=== PATIENT | female | born 1945 | race Caucasian/White ===

== ENCOUNTER 2022-02-22 22:07 | Inpatient (IN) | payer OTHER, MEDICAID ==
[~2022-02-22] VITALS: Ht 154.9 cm; Wt 59.9 kg
[2022-02-22 22:15] VITALS: BP_SYST 152
--- NOTE | 2022-02-22 22:16 | NUR ---
Placed in room 4 . Placed on monitoring and evaluation advisor, blood pressure machine and pulse oximeter. To gown for exam. Side rails up. Report given to DUTCH STONE(REG).
--- NOTE | 2022-02-22 22:41 | NUR ---
ER at bedside examining patient.
[2022-02-22 22:48] LABS: BASOPHILS # (AUTO) 0.1 K/uL (0.0-0.2); BASOPHILS % (AUTO) 0.9 % (0.0-2.0); EOSINOPHILS # (AUTO) 0.2 K/uL (0.0-0.4); EOSINOPHILS % (AUTO) 1.9 % (0.0-4.0); HEMATOCRIT 41.4 % (36-48); HEMOGLOBIN 13.4 g/dL (12.0-16.0); LYMPHOCYTES # (AUTO) 3.2 K/uL (1.0-5.5); LYMPHOCYTES % (AUTO) 33.7 % (20.5-51.5); MEAN CORPUSCULAR HEMOGLOBIN 28 pg (27-31); MEAN CORPUSCULAR HGB CONC 32 % (32-36); MEAN CORPUSCULAR VOLUME 85 fL (79.0-98.0); MONOCYTES # (AUTO) 0.6 K/uL (0.0-1.0); MONOCYTES % (AUTO) 6.4 % (1.7-9.3); NEUTROPHILS # (AUTO) 5.5 K/uL (1.8-7.7); NEUTROPHILS % (AUTO) 57.1 % (40.0-70.0); PLATELET COUNT (AUTO) 347 K/uL (130-430); RED BLOOD CELL COUNT(AUTO) 4.84 MIL/uL (4.2-6.2); RED CELL DISTRIBUTION WIDTH 14.3 % (9.0-15.0); WHITE BLOOD COUNT (AUTO) 9.6 K/uL (4.8-10.8)
--- NOTE | 2022-02-22 22:50 | NUR ---
PATIENT BIB [facility], INFORMED OF PLAN OF CARE AT THIS TIME HAS BEEN SEEN BY ER MD, ATTEMPTED TO ESTABLISHE A SALINE LOCK, UNABLE TO DO SO AT THIS TIME. NO S/S OF ANY DISTRESS NOTED AT THIS TIME. #20G ESTABLISHED IN RIGHT HAND BY MADHU STONE. BEDSIDE EKG WAS DONE FOR MD REVIEW.
[2022-02-22 22:56] LABS: ANION GAP 8 (5-15); CALCIUM 9.5 mg/dL (8.4-11.0); CHLORIDE 106 mmol/L (98-107); CREATININE 0.93 mg/dL (0.55-1.30); GLUCOSE 114 mg/dL (70-99); UREA NITROGEN, BLOOD 15 mg/dL (8-21)
[2022-02-22 23:04] LABS: ALANINE AMINOTRANSFERASE 23 U/L (12-78); ALBUMIN 3.6 g/dL (3.4-4.8); ASPARTATE AMINOTRANSFERASE 17 U/L (10-37); TOTAL BILIRUBIN 0.3 mg/dL (0.0-1.0)
[2022-02-23] MEDS ORDERED: ASPIRIN 81 MG TABLET(ECOTRIN) PO ONE
--- NOTE | 2022-02-23 00:02 | NUR ---
PATIENT CONTINUES TO REST WITHOUT S/S OF ANY DISTRESS AT THIS TIME. REPOSITIONED SELF FOR COMFORT.WILL CONTINUE TO MONITOR. PATIENT AWARE WILL BE ADMITTED
[2022-02-23] MEDS ORDERED: POTASSIUM CHLORIDE 20 MEQ TAB.PRT.SR PO ONE (00:15)
[2022-02-23] MEDS ORDERED: AMLO5TAB4 PO (01:02)
--- NOTE | 2022-02-23 01:02 | NUR ---
Medication reconciliation completed with information provided by pt at the bedside. Any prior medication reconciliation on file was reviewed and corrected.
--- NOTE | 2022-02-23 01:04 | NUR ---
COVID 19 SWAB TEST SAMPLE COLLECTED AND SENT TO THE LAB
--- NOTE | 2022-02-23 01:10 | NUR ---
PATIENT RESTING REMAINS EASY TO AROUSE, NO VOICED C/O PAIN OR DISCOMFORT AT THIS TIME.
--- NOTE | 2022-02-23 01:26 | NUR ---
O2 SAT 88% MD AWARE, O2 STARTED @2L.
--- NOTE | 2022-02-23 02:46 | NUR ---
Admit bed requested Patient will be admitted to care of Dr.PALIWAL Staton Admitted to TELE unit. Diagnosis CP Inpatient (Yes or No) YES Observation (Yes or No) NO Orientation concerns or request close to nursing station (Yes or No) NO Covid Status NEGATIVE On vent or bipap NO Isolation requirements NO Needs a sitter NO From Home (Yes or if No enter name of facility) YES Requires Dialysis (Yes or No) NO Med Rec Completed (Yes of No) YES
--- NOTE | 2022-02-23 03:21 | NUR ---
RESTING IN BED, DAUGHTER AT BEDSIDE NO S/S OF ANY DISTRESS NOTED, UPDATED ON AWAITING ROOM ASSIGNMENT. NO CHANGE NOTED IN PRIMARY ASSESSMENT WILL CONTINUE TO MONITOR.
[2022-02-23] MEDS ORDERED: NACL 0.9% 1,000 ML IV ONE (05:30)
--- NOTE | 2022-02-23 05:34 | NUR ---
MD MADE AWARE OF HEART RATE FROM MID 40'S TO UPPER 50'S DURING SLEEP, OKAY TO GIVE NS BOLUS.
--- NOTE | 2022-02-23 06:12 | NUR ---
PATIENT UP AMBULATED TO BATHROOM, PLACED [facility] BED, NO VOICED C/O PAIN OR DISCOMFORT. WILL CONTINUE TO MONITOR.
--- NOTE | 2022-02-23 07:22 | NUR ---
Received report from anant RN. Pt lying in bed with eyes closed. REsp even and unlabored. No acute distress noted. Denies any pain. Presently on monitor.
--- NOTE | 2022-02-23 07:32 | NUR ---
ADMISSION CONSULT HAS BEEN PAGED ORDERED BY Brionna HARRIS
--- NOTE | 2022-02-23 07:35 | NUR ---
Cardiology consulted doctor stated (Dr. Rm) he will come in later to view patient.
--- NOTE | 2022-02-23 09:00 | NUR ---
Breakfast 90% consumed.
--- NOTE | 2022-02-23 09:35 | NUR ---
Cardiac consult provider present in room.
[2022-02-23] MEDS ORDERED: ALBUTEROL SULFATE 0.083% 2.5 MG/3 ML VIAL.NEB INH PRN (10:00)
[2022-02-23] MEDS ORDERED: IPRATROPIUM BROM 0.5 MG/2.5 ML VIAL.NEB (ATROVENT) INH PRN (10:00)
[2022-02-23] MEDS ORDERED: ACETAMINOPHEN 325 MG TABLET PO PRN ×2 (10:00→10:30)
[2022-02-23] MEDS ORDERED: NALOXONE HCL 0.4 MG/ML AMP (NARCAN) IVP PRN ×2 (10:00)
[2022-02-23] MEDS ORDERED: ONDANSETRON HCL 4 MG/2 ML VIAL IVP PRN (10:00)
[2022-02-23] MEDS ORDERED: amLODIPine BESYLATE 5 MG TABLET PO ONE (10:00)
[2022-02-23] MEDS ORDERED: HYDROcodone/ACETAMIN 10-325 MG TAB PO PRN (10:00)
[2022-02-23] MEDS ORDERED: HYDROcodone/ACETAMIN 5-325 MG TAB (NORCO/ VICODIN) PO PRN (10:00)
--- NOTE | 2022-02-23 10:15 | NUR ---
Patient will be admitted to care of Dr. Rm . Admitted to telemetry unit. Will go to room 103 bed A. Belongings list completed. Complete and up to date summary report printed. SBAR report given to CHASE Mena at bedside with opportunity for questions.
--- NOTE | 2022-02-23 10:20 | NUR ---
Admission Note Received patient from ER with diagnosis of Chest Pain/Afib. Initial Plan of Care discussed-patient verbalized understanding. Placed on long line teamster. Oriented to room, call light, pain management and safety.Personal belongings checked and recorded.
--- NOTE | 2022-02-23 10:21 | NUR ---
Cardiology Consult Dr Waldo Rm said that NORA Palma will see pt, RE; CHEST PAIN.
[2022-02-23 10:30] VITALS: BP_SYST 139
[2022-02-23 11:00] VITALS: BP_SYST 139
[2022-02-23 11:01] LABS: THYROID STIMULATING HORMONE 1.12 uIu/mL (0.36-3.74)
--- NOTE | 2022-02-23 12:10 | NUR ---
LUNCH: LUNCH TRAY SERVED. DAUGHTER AT THE BEDSIDE.
[2022-02-23] MEDS: NORMAL SALINE 5 ML DISP.SYRIN IVF SCH ×4 (14:00→22:00)
[2022-02-23] MEDS ORDERED: iohexoL 350 mgI/mL, 100 ML INFUS..BTL IV ONE (14:05)
--- NOTE | 2022-02-23 14:45 | NUR ---
TO CT SCAN: TO CT SCAN VIA WHEELCHAIR.STABLE.
--- NOTE | 2022-02-23 15:00 | NUR ---
RN ROUNDS: PATIENT BACK FROM RADIOLOGY. NO COMPLAINED MADE.
[2022-02-23 17:13] VITALS: BP_SYST 139
--- NOTE | 2022-02-23 18:50 | NUR ---
EVENING ROUNDS: PATIENT'S DAUGHTER AT THE BEDSIDE. PATIENT HAD DINNER. DENIES ANY CHEST PAIN. FOR STRESS STUDY IN AM ORDERED. NPO POST MIDNIGHT.WILL ENDORSED TO INCOMING NIGHT NURSE.STABLE.
--- NOTE | 2022-02-23 19:30 | NUR ---
ROUNDS PATIENT RESTING COMFORTABLY IN BED, VITALS STABLE, DENIES ANY CHEST PAIN AT THIS TIME. ASSESSMENT DONE AND DOCUEMNTED. NEEDS ATTENDED TO. SAFETY MEASURES IN PLACED. CALL LIGHT PLACED WITHIN REACH.
[2022-02-23 20:00] VITALS: BP_SYST 119
--- NOTE | 2022-02-24 00:10 | NUR ---
PATIENT RESTING: Patient resting quietly. No acute distress noted. Vital signs within normal range.
[2022-02-24 00:57] VITALS: BP_SYST 132
[2022-02-24] MEDS: NORMAL SALINE 5 ML DISP.SYRIN IVF SCH ×4 (05:49→14:32)
--- NOTE | 2022-02-24 06:43 | NUR ---
CLOSING NOTES PATIENT AWAKE, NO COMPLAINTS AT THIS TIME, ALL NEEDS ATTENDED TO. NPO FOR STRESS TEST TODAY. CALL LIGHT PLACED WITHIN REACH.
[2022-02-24 06:46] LABS: BASOPHILS % (AUTO) 0.4 % (0.0-2.0); EOSINOPHILS # (AUTO) 0.2 K/uL (0.0-0.4); EOSINOPHILS % (AUTO) 2.5 % (0.0-4.0); HEMATOCRIT 39.2 % (36-48); HEMOGLOBIN 12.8 g/dL (12.0-16.0); LYMPHOCYTES # (AUTO) 2.6 K/uL (1.0-5.5); LYMPHOCYTES % (AUTO) 34.8 % (20.5-51.5); MEAN CORPUSCULAR HEMOGLOBIN 28 pg (27-31); MEAN CORPUSCULAR HGB CONC 33 % (32-36); MEAN CORPUSCULAR VOLUME 86 fL (79.0-98.0); MONOCYTES # (AUTO) 0.5 K/uL (0.0-1.0); MONOCYTES % (AUTO) 7.2 % (1.7-9.3); NEUTROPHILS # (AUTO) 4.1 K/uL (1.8-7.7); NEUTROPHILS % (AUTO) 55.1 % (40.0-70.0); PLATELET COUNT (AUTO) 317 K/uL (130-430); RED BLOOD CELL COUNT(AUTO) 4.57 MIL/uL (4.2-6.2); RED CELL DISTRIBUTION WIDTH 14.2 % (9.0-15.0); WHITE BLOOD COUNT (AUTO) 7.5 K/uL (4.8-10.8)
[2022-02-24 07:03] LABS: ANION GAP 7 (5-15); CALCIUM 8.9 mg/dL (8.4-11.0); CHLORIDE 105 mmol/L (98-107); GLUCOSE 90 mg/dL (70-99); UREA NITROGEN, BLOOD 14 mg/dL (8-21)
--- NOTE | 2022-02-24 07:15 | NUR ---
OPENING NOTE Received report from CHASE Mercedes. Patient was not in room at this time. Was endorsed that patient went to stress testing at this time.
--- NOTE | 2022-02-24 08:10 | NUR ---
PATIENT RETURNED Patient returned to room. Patient sitting at side of the bed, alert and oriented x4. Vital signs stable. She denies pain or discomfort. IV site is intact, clean, and dry. Saline locked at this time. Call light within reach. All safety precautions observed.
[2022-02-24 08:20] VITALS: BP_SYST 153
[2022-02-24] MEDS ORDERED: amLODIPine BESYLATE 5 MG TABLET PO SCH (09:00)
[2022-02-24] MEDS ORDERED: REGADENOSON 0.4 MG/5 ML SYRINGE IVP ONE (09:15)
[2022-02-24 12:31] VITALS: BP_SYST 130
--- NOTE | 2022-02-24 14:40 | NUR ---
RN ROUNDS Patient laying in bed at this time, awake, alert, and oriented x4. She denies pain or discomfort. LFA 22G remains patent and intact. Daughter is at bedside. Call light within reach, all safety precautions observed.
[2022-02-24 15:03] VITALS: BP_SYST 134
[2022-02-24 15:50] VITALS: BP_SYST 134
--- NOTE | 2022-02-24 15:50 | NUR ---
D/C D/C Patient Patient given medication reconciliation form and D/C instructions. Exit Care provided. Patient verbalized understanding. Ambulatory with steady gait for discharge to home. Patient in stable condition, ID band removed. IV catheter removed, intact and dressing applied, no active bleeding. All belongings sent with patient. Left with daughter Rica.
== END 2022-02-24 15:55 | disposition home or self-care (01) | DRG 313 ==
LOC: SED 22:07 → STU 02-23 02:45
PROVIDERS: ADMIT Preventive Medicine Preventive Medicine/Occupational Environmental Medicine; ATTEND Preventive Medicine Preventive Medicine/Occupational Environmental Medicine
DX: R07.89 Other chest pain (principal); I10 Essential (primary) hypertension; E78.5 Hyperlipidemia, unspecified; R73.9 Hyperglycemia, unspecified; Z98.891 History of uterine scar from previous surgery; Z86.718 Personal history of other venous thrombosis and embolism; Z79.01 Long term (current) use of anticoagulants
CPT/HCPCS: 36415; 71045; 71275; 76376; 80048; 80053; 80061; 83735; 83880; 84132; 84443; 84484; 85025; 85379; 93005; 93017; 93306; 93970; 99285; A9500; G0378; J2785; Q9967